=== PATIENT | female | born 2000 | race African-American/Black ===

== ENCOUNTER 2018-09-29 10:15 | Inpatient (IN) | payer OTHER ==
[~2018-09-29] VITALS: Ht 172.7 cm; Wt 85.1 kg
--- NOTE | ~2018-09-29 | HC ---
[facility] [place] [address] CONSULTATION Name: JOSE RAUL SALAZAR Room #: 210-P [facility] IN M.R.#: [id number] Admission: 09/29/18 Attend Phys: Jose Alejandro Webb MD Discharge: 10/03/18 Date of : [birth year] Report #: [id number] THIS REPORT FOR: //name// CC: Jose Alejandro Webb [facility] physician/PCP HISTORY OF PRESENT ILLNESS: The patient is a 18-year-old black female presented to the Emergency Room with complaints of nausea, vomiting and findings of dehydration and ultimately a mastitis/sepsis. I have been asked to see her in regard to mild thrombocytopenia. This has not been associated with any untoward bruising or bleeding that she has detected. She denies any prior history of thrombocytopenia. She is currently on iron, and is . Since hospitalization and receiving antibiotics, she reports that her breast pain has improved. She has detected a hemorrhoid since being admitted. She is 1 parity 1 and delivered at [facility] on 09/03/2018. She has antecedent history of pelvic pain, which she is not pursued further evaluation of what are felt to be teratomas because of her lack of insurance. PAST MEDICAL HISTORY: Other than this is negative. ALLERGIES: None known. MEDICATIONS: As listed in the MFR. REVIEW OF SYSTEMS: Negative except as in the history of present illness. PHYSICAL EXAMINATION: GENERAL: Shows an alert black female. HEENT: Normocephalic. Mouth is clear. NECK: Supple. CHEST: Chest is clear. CARDIOVASCULAR: Normal S1 and S2. ABDOMEN: Shows uterine fundus to be palpable. EXTREMITIES: No clubbing, cyanosis or edema. NEUROLOGICAL: No focal localizing signs. SKIN: Showed right breast with induration. She did not have bleeding or bruising. SOCIAL HISTORY: Negative for tobacco, drug use or alcohol. She is sexually monogamous. LABORATORY DATA: Reviewed and showed mild thrombocytopenia, which appears to be spontaneously resolving. ASSESSMENT AND PLAN: Mild thrombocytopenia - asymptomatic and appears to be [facility] [address] [place] [address] CONSULTATION Name: JOSE RAUL SALAZAR Room #: 210-P [facility] IN M.R.#: [id number] Admission: 09/29/18 Attend Phys: Jose Alejandro Webb MD Discharge: 10/03/18 Date of : [birth year] Report #: [id number] resolving. I suspect that this is related to her mastitis and subsequent sepsis. I did obtain labs today, which I will review and follow along with you. Thanks for allowing us to see her in consultation being asked to participate in her care. By: 1014 19 Tisha Hernandez MD /nt
[2018-09-29 10:15] VITALS: BP 102/72
[2018-09-29] MEDS ORDERED: PRENATABS FA T1 EACH PO (10:46)
[2018-09-29 10:50] LABS: ABSOLUTE NEUTROPHILS 5.9 thou/uL (1.4-8.2); BASOPHILS 0.1 % (0.0-2.0); EOSINOPHILS 0.2 % (0.0-3.0); HEMATOCRIT 42.4 % (37.0-47.0); HEMOGLOBIN 14.2 gm/dL (12.0-15.0); LYMPHOCYTES 6.2 % (24.0-44.0); MCH 30.5 pg (26.0-34.0); MCHC 33.5 g/dL (28.0-37.0); MCV 91.2 fL (80.0-100.0); MONOCYTES 9.4 % (1.0-8.0); POLYS 84.1 % (36.0-66.0); RBC 4.65 mil/uL (4.20-5.00); WBC 7.1 thou/uL (4.0-11.0)
[2018-09-29 10:54] LABS: ANION GAP 15 mmol/L (7-16); BUN 12 mg/dL (7-18); CALCIUM 9.4 mg/dL (8.5-10.1); CHLORIDE 104 mmol/L (98-107); CO2 21 mmol/L (21-32); GLUCOSE 105 mg/dL (74-106); POTASSIUM 3.6 mmol/L (3.5-5.1); SODIUM 140 mmol/L (136-145)
[2018-09-29 11:02] LABS: TROPONIN-I <0.06 ng/mL (<0.06)
[2018-09-29 11:37] LABS: PLATELET COUNT 160 thou/uL (150-400)
[2018-09-29 14:59] LABS: URINE BILIRUBIN NEGATIVE (Negative); URINE BLOOD 2+ (Negative); URINE CLARITY CLOUDY; URINE COLOR YELLOW; URINE GLUCOSE-RANDOM* NEGATIVE (Negative); URINE KETONES NEGATIVE (Negative); URINE LEUKOCYTES-REFLEX NEGATIVE (Negative); URINE NITRITE-REFLEX NEGATIVE (Negative); URINE PROTEIN (DIPSTICK) NEGATIVE (Negative); URINE SPECIFIC GRAVITY 1.025 (1.005-1.035); URINE UROBILINOGEN 0.2 E.U./dl (0.2-1.0)
[2018-09-29 15:17] LABS: BACTERIA-REFLEX 1-9 Few /HPF (None Seen); CASTS None Seen /LPF (None Seen); SQUAMOUS 0-3 Few /LPF (0-3); URIC ACID CRYSTALS >10 Many /LPF (None Seen); URINE RBC None Seen /HPF (0-2); URINE WBC-REFLEX None Seen /HPF (0-5)
--- NOTE | 2018-09-29 15:17 | EKG ---
[place] [place] [address] [facility] [place] [address] ELECTROCARDIOGRAM REPORT Name: KAELAShrutiYanetPANDYAJOSE RAUL Room #: [facility] [id number] Admission: 09/29/18 Attend Phys: Discharge: Date of : [birth year] Report #: [id number] THIS REPORT FOR: //name// [facility] ED Test Date: 2018-09-29 Test Time: 10:42:34 Pat Name: JOSE RAUL SALAZAR Department: Room: Gender: F Subsystems Engineer: pratik : 2000 Requested By: Marky Trotter Order Number: [id number] MD: Mu Huerta Measurements Intervals [place] Rate: 134 P: 49 MN: 122 QRS: 22 QRSD: 72 T: -33 QT: 365 QTc: 545 Interpretive Statements Sinus tachycardia Nonspecific ST and T wave abnormality Prolonged QT interval No previous ECG available for comparison Electronically Signed On 09-29-2018 15:16:59 [employer] by Mu Huerta [email or web address] <ELECTRONICALLY SIGNED> By: Mu Huerta MD, [facility] 09/29/18 1516 1042 [id number] Mu Huerta MD, FACC /EPI
[2018-09-29 17:24] VITALS: BP 118/84
[2018-09-29 18:41] VITALS: BP 125/89
[2018-09-29 19:30] VITALS: BP 143/93
[2018-09-30 00:07] VITALS: BP 122/78
[2018-09-30 03:13] LABS: ABSOLUTE NEUTROPHILS 6.8 thou/uL (1.4-8.2); BASOPHILS 0.3 % (0.0-2.0); EOSINOPHILS 0.1 % (0.0-3.0); HEMATOCRIT 37.6 % (37.0-47.0); HEMOGLOBIN 12.5 gm/dL (12.0-15.0); LYMPHOCYTES 9.7 % (24.0-44.0); MCH 30.4 pg (26.0-34.0); MCHC 33.3 g/dL (28.0-37.0); MCV 91.4 fL (80.0-100.0); MONOCYTES 7.9 % (1.0-8.0); PLATELET COUNT 129 thou/uL (150-400); RBC 4.11 mil/uL (4.20-5.00); RDW 15.1 % (10.5-14.5); WBC 8.3 thou/uL (4.0-11.0)
[2018-09-30 03:22] LABS: MAGNESIUM 1.2 mg/dL (1.8-2.4)
[2018-09-30 03:26] LABS: POTASSIUM 2.8 mmol/L (3.5-5.1)
[2018-09-30 05:35] VITALS: BP 125/82
--- NOTE | 2018-09-30 06:23 | NUR ---
PT. AOX4 DURING SHIFT CHANGE; NEW ADMISSION; C/O PAIN OVER LOWER BACK; SHAKING; C/O COLD; TEMPERATURE 101.3; ACETAMINOPHEN GIVEN; REQUESTED PRN PAIN MEDICATION TO JALOUSIE INSTALLER; ORDERS RECEIVED; LATE ANTIBIOTICS GIVEN FROM ER; TEMPERATURE RE-ASSESSMENT 100.1; RE-ASSESSMENT PAIN 5/10; PER ORDER FLUIDS STARTED; RE-ASSESSED TEMPERATURE BEFORE MIDNIGHT 100.1; ACETAMINOPHEN GIVEN; TEMPERATURE RE-ASSESSMENT 103; JALOUSIE INSTALLER NOTIFIED; ORDERS RECEIVED; AFTER ONE HOUR TEMPERATURE RE-ASSESSED 103; JALOUSIE INSTALLER; ORDERS RECEIVED; 1L BOLUS GIVEN; REQUESTED AT 240AM LABS; LABS RESULTS SHOWED NA = 132; K=2.8; CA= 8.0; MG 1.2; JALOUSIE INSTALLER NOTIFIED; ORDERS RECEIVED; MG & K PROTOCOL; IV K & MG STARTED; ACETAMINOPHEN GIVEN AT 0400; TEMPERATURE RE-ASSESSED 101; PT. ST FEELING BETTER; NOT FEELING SO MUCH COLD; AM MEDICATION GIVEN; WILL PASS ON REPORT.
[2018-09-30 08:10] VITALS: BP 136/81
--- NOTE | 2018-09-30 12:22 | NUR ---
Cuff Turner Machine Operator visited with the pt at bedside. She is a&ox4 and was indep prior to admission. She is post x 1 month and has a little boy. She lives with her mother who is also providing care for her baby while she is in the hospital. She is being treated for mastitis and on iv atb. She reports that her mother is bringing in her breast pump today. She applied for or medicaid prior to [facility] and was working with [facility]. They have seen her today and indicate she will have approval in the future. Pt may need scripts vouchered at ri. Will follow.
[2018-09-30 13:50] VITALS: BP 121/75
--- NOTE | 2018-09-30 15:41 | NUR ---
PT ALERT AND ORIENTED TIMES FOUR. HR ELEVATED MOST OF THE SHIFT DR ZHAO. TYLENOL GIVEN FOR ELEVATED TEMP OF 102. 97%RA, C/O PAIN OF RIGHT BREAST, BUT REFUSED TO TAKE ANY MEDS AT THIS TIME. IVF INFUSING PER ORDER. PT TOLERATES MEDS AND MEALS. PT UP AB DANYEL WITH STEADY GAIT. PT SLOWLY PROGRESSING TOWRADS POC GOALS.
[2018-09-30 16:35] VITALS: BP 125/85
[2018-09-30 16:45] LABS: MAGNESIUM 1.8 mg/dL (1.8-2.4); POTASSIUM 3.7 mmol/L (3.5-5.1)
[2018-09-30 19:13] VITALS: BP 114/83
[2018-10-01 05:18] VITALS: BP 124/62
[2018-10-01 05:20] LABS: HEMATOCRIT 33.2 % (37.0-47.0); HEMOGLOBIN 11.2 gm/dL (12.0-15.0); MCH 30.9 pg (26.0-34.0); MCHC 33.8 g/dL (28.0-37.0); MCV 91.3 fL (80.0-100.0); RBC 3.64 mil/uL (4.20-5.00); RDW 14.9 % (10.5-14.5); WBC 7.7 thou/uL (4.0-11.0)
--- NOTE | 2018-10-01 07:41 | NUR ---
PT. AOX4 AT SHIFT CHANGE; ST. FEELING BETTER; TEMPERATURE ON THE 98'S; HR ON 110'S BEFORE MIDNIGHT AND BELOW 100'S AFTER MIDNIGHT; NO LOWER BACK PAIN; ABLE TO REST THROUGH THE NIGHT; NO C/O PAIN; ASSESSMENT CHARGED; FOLLOWING POC; PASSED ON REPORT.
[2018-10-01 08:00] VITALS: BP 120/65
[2018-10-01 13:00] VITALS: BP 137/84
[2018-10-01 16:00] VITALS: BP 119/65
--- NOTE | 2018-10-01 17:28 | NUR ---
ASSESSMENT CHARTED. PT ALERT AND ORIENTED. REPORT HAVING PAIN AND TENDERNESS ON THE RIGHT BREAST. HEAT APPLIED. SEEN BY DR. VILLAGRAN. ORDERS NOTED. PT REPORTED TO HEALTH CARE FACILITY ADMINISTRATOR THAT HER BREAST PUMP WAS DROPPED IN THE ER BY ONE OF THE NURSES AND IT IS NOT WORKING. HOUSE SUPERVISIOR NOTIFIED. WILL CONTINUE TO MONITOR.
[2018-10-01 19:53] VITALS: BP 125/84
[2018-10-02 03:12] VITALS: BP 117/65
--- NOTE | 2018-10-02 04:35 | NUR ---
PT. C/O NECK PAIN AT SHIFT CHANGE; PRN ACETAMINOPHEN GIVEN; ST. BREAST PUMP IS BROKEN THEREFORE SHE CAN'T PUMP Q4H PER NOTES; HR & T WNL; ABLE TO REST FOR A FEW HOURS; AWAKE AROUND 0300; ST CAN'T SLEEP; NO HELP NEEDED DURING NURSE ROUNDING; FOLLOWIN POC; ASSESSMENT CHARGED; WILL PASS ON REPORT.
[2018-10-02 06:13] LABS: HEMATOCRIT 34.5 % (37.0-47.0); HEMOGLOBIN 11.3 gm/dL (12.0-15.0); MCH 29.8 pg (26.0-34.0); MCHC 32.7 g/dL (28.0-37.0); MCV 91.2 fL (80.0-100.0); RBC 3.79 mil/uL (4.20-5.00); RDW 14.7 % (10.5-14.5); WBC 5.8 thou/uL (4.0-11.0)
[2018-10-02 06:22] LABS: CREATININE 0.6 mg/dL (0.6-1.0); MAGNESIUM 1.7 mg/dL (1.8-2.4); POTASSIUM 3.3 mmol/L (3.5-5.1)
[2018-10-02 08:00] VITALS: BP 128/88
[2018-10-02 10:57] LABS: MAGNESIUM 1.7 mg/dL (1.8-2.4)
[2018-10-02 12:30] VITALS: BP 127/89
[2018-10-02 16:25] VITALS: BP 123/79
--- NOTE | 2018-10-02 17:29 | NUR ---
PT ALERT AND ORIENTED. VSS. DENIED HAVING PAIN OR DISCOMFORT. REPORT FEELING MUCH BETTER. SEEN BY DR. BARROSO AND DR. VILLAGRAN. ORDERS NOTED. HEMATOLOGY CONSULTED. WILL CONTINUE TO MONITOR.
[2018-10-02 20:10] VITALS: BP 119/78
[2018-10-03 04:08] VITALS: BP 125/76
--- NOTE | 2018-10-03 06:14 | NUR ---
ASSUME CAR E1900. PT/VITALS STABLE. PT APPROPRIATE AN TALKING WITH FAMILY, COMPLAINS OF HEMORRHOID PAIN. UP AD DANYEL. ASSESSMENT CHARTED. PROGRESSING WELL WITH POC. PLAN IS FOR HOSPICE LIAISON TO CONSULT PT FOR POSSIBLE TERATOMA. WILL FOLLOW WITH POC PER ATTENDING AND HEMATOLOGY. WILL CONTINUE TO MONITOR
[2018-10-03 08:03] VITALS: BP 136/82
[2018-10-03 09:48] LABS: APTT 28.3 Seconds (24.5-32.8); FIBRINOGEN 437.9 mg/dL (210-360); PROTIME 9.6 Seconds (9.3-11.4)
[2018-10-03 10:08] LABS: OBSERVED RETIC COUNT 0.87 % (0.6-2.6)
[2018-10-03] MEDS ORDERED: AUGMENTIN 875-1 EACH PO (11:48)
--- NOTE | 2018-10-03 11:50 | NUR ---
patient reports her breast pump is not working. She reports she used in ER and was on table plugged in and she believes someone in ER who was not in scrubs came in room and it tipped over and fell. Patients pump she believes is broken has used since that time and does not work. She reports she can pump both breast and use milk from left breast. Contacted [facility] who does not supply breast pumps. Patients pump a Medela. [employer] network planner to contact [facility] who likely carries breast pumps.
[2018-10-03 12:31] VITALS: BP 123/82
[2018-10-03 13:40] VITALS: BP 123/82
--- NOTE | 2018-10-03 15:00 | NUR ---
[facility] reports [employer] pump single pump. [facility] has a roswell electric double pump. Discussed with patient if possible she prefers [employer]. [facility] provided pump Kewadin prior to dc home. No further needs.
--- NOTE | 2018-10-03 15:34 | NUR ---
ASSESSMENT CHARTED. PT ALERT AND ORIENTED. VSS. DENIED HAVING PAIN OR DISCOMFORT. SEEN BY DR. LIZ. ORDERS GIVEN TO D/C PT TO HOME. DISCHARGE INSTRUCTIONS GIVEN TO PT. PT VERBERLIZE UNDERSTANDING.
== END 2018-10-03 16:54 | disposition home or self-care (01) | DRG 776 ==
LOC: ER 10:15 → EROBS 17:01 → 2N 17:01
PROVIDERS: Emergency Medicine; Internal Medicine; Internal Medicine Hematology & Oncology; Nurse Practitioner; ADMIT Hospitalist
DX: O85 Puerperal sepsis (principal); O99.13 Other diseases of the blood and blood-forming organs and certain disorders involving the immune mechanism complicating the puerperium; O91.22 Nonpurulent mastitis associated with the puerperium; D69.6 Thrombocytopenia, unspecified; O99.285 Endocrine, nutritional and metabolic diseases complicating the puerperium; E87.6 Hypokalemia; O90.81 Anemia of the puerperium; D64.9 Anemia, unspecified; D27.0 Benign neoplasm of right ovary
CPT/HCPCS: 10081

== ENCOUNTER 2021-08-09 19:31 | Emergency (ER) | payer OTHER ==
[~2021-08-09] VITALS: Ht 172.7 cm; Wt 86.2 kg
[~2021-08-09 19:31] MED LIST: AUGMENTIN 875-1 EACH PO; PRENATABS FA T1 EACH PO
[2021-08-09 20:11] LABS: ABSOLUTE NEUTROPHILS 7.3 thou/uL (1.4-8.2); BASOPHILS 0.2 % (0.0-2.0); EOSINOPHILS 0.2 % (0.0-3.0); HEMATOCRIT 38.7 % (37.0-47.0); HEMOGLOBIN 12.9 gm/dL (12.0-15.0); LYMPHOCYTES 4.4 % (24.0-44.0); MCH 31.4 pg (26.0-34.0); MCHC 33.4 g/dL (28.0-37.0); MONOCYTES 10.4 % (1.0-8.0); PLATELET COUNT 172 thou/uL (150-400); POLYS 84.8 % (36.0-66.0); RBC 4.12 mil/uL (4.20-5.00); RDW 13.8 % (10.5-14.5); WBC 8.6 thou/uL (4.0-11.0)
[2021-08-09 20:25] LABS: CALCIUM 8.9 mg/dL (8.5-10.1); CREATININE 0.9 mg/dL (0.6-1.0); POTASSIUM 3.5 mmol/L (3.5-5.1)
[2021-08-09 20:31] LABS: ALBUMIN 3.8 g/dL (3.4-5.0); TOTAL BILIRUBIN 0.2 mg/dL (0.2-1.0); TOTAL PROTEIN 7.9 g/dL (6.4-8.2)
[2021-08-09 22:07] LABS: URINE BILIRUBIN NEGATIVE (Negative); URINE BLOOD TRACE (Negative); URINE CLARITY CLEAR; URINE COLOR YELLOW; URINE GLUCOSE-RANDOM* NEGATIVE (Negative); URINE KETONES NEGATIVE (Negative); URINE NITRITE-REFLEX NEGATIVE (Negative); URINE PROTEIN (DIPSTICK) NEGATIVE (Negative); URINE UROBILINOGEN 0.2 E.U./dl (0.2-1.0)
[2021-08-09 22:10] LABS: URINE LEUKOCYTES-REFLEX 1+ (Negative)
[2021-08-09 22:15] LABS: AMP/METHAMP Negative (Negative); BARBITURATES Negative (Negative); BENZODIAZEPINES Negative (Negative); COCAINE Negative (Negative); METHADONE Negative (Negative); OPIATES Negative (Negative); PCP Negative (Negative)
[2021-08-09 22:21] LABS: CASTS None Seen /LPF (None Seen); MUCUS 0-3 Light strn/LPF (None Seen); SQUAMOUS 4-10 Moderate /LPF (0-3)
[2021-08-09 22:22] LABS: CRYSTALS None Seen /LPF (None Seen); URINE RBC 1-2 Rare /HPF (NONE SEEN); URINE WBC-REFLEX 6-15 Few /HPF (0-5)
[2021-08-09 22:41] VITALS: BP 120/62
--- NOTE | 2021-08-11 07:20 | EKG ---
[address] [address] [facility] [place] [address] ELECTROCARDIOGRAM REPORT Name: JOSE RAUL MUSA [id number] Admission: 08/09/21 Attend Phys: Discharge: 08/09/21 Date of : [birth year] Report #: [id number] [facility] ED Test Date: 2021-08-09 Test Time: 20:31:06 Pat Name: JOSE RAUL PANDYA Department: Room: Gender: F Enrollment Nurse: purvi : 2000 Requested By: Bianka Valdez Order Number: [id number] MD: Tim Reyes Measurements Intervals [place] Rate: 129 P: 39 NE: 156 QRS: 43 QRSD: 62 T: -28 QT: 295 QTc: 433 Interpretive Statements Sinus tachycardia Probable left atrial enlargement Nonspecific repol abnormality, anterior leads Compared to ECG 09/29/2018 10:42:34 Early repolarization now present ST (T wave) deviation no longer present Prolonged QT interval no longer present Electronically Signed On 08-11-2021 7:20:15 [employer]ATCH[employer] MAN by Tmi Reyes [email or web address] <ELECTRONICALLY SIGNED> By: iTm Reyes MD, MERGED WITH [facility] 08/11/21719 30 30 Tim Reyes MD, MERGED WITH [facility] /EPI
== END 2021-08-09 22:49 | disposition home or self-care (01) ==
LOC: ER 19:31
PROVIDERS: Physician Assistant
DX: U07.1 COVID-19 (principal); M54.9 Dorsalgia, unspecified; E03.9 Hypothyroidism, unspecified